=== PATIENT | male | born 1970 | race Two or more races ===

== ENCOUNTER 2016-12-03 20:00 | Emergency (ER) | payer OTHER ==
[2016-12-03 21:00] VITALS: BP 130/87
[2016-12-03] MEDS ORDERED: IBUPROFEN 800 MG TABLET PO ONE (22:33)
[2016-12-03] MEDS ORDERED: DIPHENHYDRAMINE HCL 50 MG CAPSULE PO ONE (22:33)
[2016-12-03] MEDS ORDERED: TETRAHYDROZOLINE HCL 0.05% OPH SOLN 15 ML OU ONE (22:33)
--- NOTE | 2016-12-03 22:38 | ER Document Report ---
ED Eye Complaint - General Chief Complaint: Eye Problem Stated Complaint: POSSIBLE ALLERGIC REACTION Mode of Arrival: Ambulatory Information source: Patient Notes: Patient is a 46-year-old male who presents to the ER today for bilateral eye swelling, itching, irritation, redness after being outside and doing some yard work earlier this afternoon. Patient states he took 2 Benadryl which has now relieved the swelling to his eyelids. He also complains of some pain around the eyes but states that he has chronic headaches and is unsure if this is related to that. He denies any blurred vision, discharge from the eyes , feeling of a foreign body in the eye. TRAVEL OUTSIDE OF THE [place] IN LAST 30 DAYS: No Past Medical History - General Information source: Patient - Social History Smoking Status: Unknown if Ever Smoked Family History: Reviewed & Not Pertinent Patient has suicidal ideation: No Patient has homicidal ideation: No Renal/ Medical History: Denies: Hx Peritoneal Dialysis Review of Systems - Review of Systems Constitutional: No symptoms reported EENT: See HPI Cardiovascular: No symptoms reported Respiratory: No symptoms reported Gastrointestinal: No symptoms reported Genitourinary: No symptoms reported Male Genitourinary: No symptoms reported Musculoskeletal: No symptoms reported Skin: No symptoms reported Hematologic/Lymphatic: No symptoms reported Neurological/Psychological: No symptoms reported Physical Exam - Vital signs Vitals: Temp Pulse Resp BP Pulse Ox 97.6 F 78 16 130/87 H 98 12/03/16 20:57 12/03/16 20:57 12/03/16 20:57 12/03/16 20:57 12/03/16 20:57 - Notes Notes: PHYSICAL EXAMINATION: GENERAL: Well-appearing and in no acute distress. HEAD: Atraumatic, normocephalic. EYES: Pupils equal round and reactive to light, extraocular movements intact, sclera anicteric, conjunctiva erythematous and watering ENT: ear canals without erythema or foreign body, TMs pearly matute with good bony landmarks, nares patent, oropharynx clear without exudates. Moist mucous membranes. NECK: Normal range of motion, supple without lymphadenopathy LUNGS: CTAB and equal. No wheezes rales or rhonchi. HEART: Regular rate and rhythm without murmurs EXTREMITIES: Normal range of motion, no pitting edema. No cyanosis. NEUROLOGICAL: Cranial nerves grossly intact. Normal sensory/motor exams. PSYCH: Normal mood, normal affect. SKIN: Warm, Dry, normal turgor, no rashes or lesions noted Course - Vital Signs Vital signs: Temp Pulse Resp BP Pulse Ox 97.6 F 78 16 130/87 H 98 12/03/16 20:57 12/03/16 20:57 12/03/16 20:57 12/03/16 20:57 12/03/16 20:57 Discharge - Discharge Clinical Impression: Eye irritation Headache Qualifiers: Headache type: unspecified Headache chronicity pattern: acute headache Intractability: not intractable Qualified Code(s): R51 - Headache Condition: Stable Disposition: HOME, SELF-CARE Instructions: Conjunctivitis, Allergic, Eyedrop Use ([facility]) Additional Instructions: Apply 1-2 drops of the eye drops in both eyes as needed up to 4 times a day for eye irritation. Using continue Benadryl as you feel for itching of the eyes, swelling of the eyes, irritation. Return immediately for any new or worsening symptoms. Follow up with primary care provider, call tomorrow to make followup appointment.
[2016-12-03] MEDS ORDERED: TETRAHYDROZOLINE HCL 0.05% OPH SOLN 15 ML ONE (23:08)
== END 2016-12-03 23:15 | disposition home or self-care (01) ==
LOC: ER 20:00
DX: R51 Headache (principal); T78.40XA Allergy, unspecified, initial encounter; R22.0 Localized swelling, mass and lump, head
CPT/HCPCS: 99283; J3490